=== PATIENT | female | born 1990 | race Caucasian/White ===

== ENCOUNTER 2016-07-06 16:17 | Emergency (ER) | payer BC, OTHER ==
[~2016-07-06] VITALS: Ht 160 cm; Wt 81.0 kg
[~2016-07-06 16:17] MED LIST: CIPR-255 PO; LORA-741 PO; NORE1TAB53 PO; PANT1TAB48 PO; SERT1TAB68 PO; SERT50TA PO; SUCR1TAB29 PO
[2016-07-06 16:25] VITALS: BP 135/92; TEMP 37.2; Ht 160 cm; Wt 81.0 kg
[2016-07-06] MEDS ORDERED: NORE0.1T PO (16:43)
[2016-07-06] MEDS ORDERED: ZLF/100 PO (16:43)
[2016-07-06] MEDS ORDERED: DULO-24 PO (16:44)
--- NOTE | 2016-07-06 16:53 | EMERGENCY ROOM VISIT NOTE ---
History First contact with patient: 16:38 Chief Complaint: EYE ASSESSMENT Stated Complaint: SUDDEN BLURRY EYES History of Present Illness The patient is a 26 year old female who presents to the Emergency Room via private vehicle with complaints of "suddenly blurry eyes". The patient states that 0.5 hours to 45 minutes ago she had gotten home from work back to her place of residence and was preparing to do laundry and noticed that there was vision changes in both eyes. She notes that there was a kaleidoscope change in her vision. She notes that when away in her left eye became blurry like there are floaters in the eye. She denies any symptoms currently. She thought that the symptoms are from being outside may also be a migraine with aura but she was not formally diagnosed with migraines. Patient notes that she does get headaches from time to time but does not see a neurologist. She states that after he vision changes she developed a headache on the top of her head that she rates as a 2/10. She notes she was also feeling anxious after vision changes and took an Ativan did help her calm down which was prescribed. She denies any eye pain or trauma. She denies any abdominal pain. She denies any chest pain, shortness of breath, fevers, chills. Review of Systems A complete 6-point Review of Systems was discussed with the patient, with pertinent positives and negatives listed in the History of Present Illness. All remaining Review of Systems questions can be considered negative unless otherwise specified. Past Medical/Surgical History Medical Problems: (1) Anxiety (2) GERD (gastroesophageal reflux disease) (3) Ovarian cyst (4) PTSD (post-traumatic stress disorder) Family History Cancer Gastrointestinal disorder Seizures Social History Smoking Status: Never Smoker Alcohol Use: occasionally Drug Use: none Marital Status: single Housing Status: lives alone Occupation Status: employed Current/Historical Medications Scheduled Duloxetine HCl (Cymbalta), 20 MG PO QAM Norethindrone & Eth Estradiol (Alyacen ), 1 TAB PO DAILY Sertraline HCl (Sertraline HCl), 150 MG PO QAM Scheduled PRN Lorazepam (Ativan), 0.5 MG PO Q6H PRN for Anxiety Allergies Coded Allergies: Amoxicillin (Verified Allergy, Unknown, ITCHY THROAT, 07/05/15) Jose C (Verified Allergy, Unknown, GI SYMPTOMS, 07/05/15) food intolerance Physical Exam Vital Signs Date Time Temp Pulse Resp B/P Pulse Ox O2 Delivery O2 Flow Rate FiO2 07/06/16 19:03 87 19 99 07/06/16 16:25 37.2 92 18 135/92 99 Room Air Right Eye Acuity: 20/20 Left Eye Acuity: 20/30 Physical Exam VITAL SIGNS - Vital signs and nursing notes were reviewed. Afebrile, normotensive, not tachycardic and saturating well on room air 99%. GENERAL -26-year-old female appearing her stated age who is in no acute distress. Communicates well with provider and answers questions appropriately. SKIN - Without rashes. HEAD - NC/AT. EYES - PERRL with EOMI bilaterally. Sclera without noticeable foreign body or excoriations. No injection noted in the Bilateral eyes. Without subconjunctival hemorrhage. Palpebral conjunctiva pink and moist with no injection or discharge noted. Brief fundoscopic exam demonstrates no AV-nicking, cotton wool spots, or flame hemorrhages. Unremarkable eye exam. EARS - No deformities of external structures noted on gross examination bilaterally. No pain elicited with palpation of the tragus bilaterally. External auditory canals without discharge or otorrhea. Tympanic membranes pearly canseco without retraction or bulging. No fluid or purulent material visualized behind the TM. Handle of malleus, umbo, cone of light, pars tensa/ flaccid all easily visualized. NOSE - Midline and without cyanosis. No epistaxis or purulent drainage noted. Septum midline without deviation or septal hematoma noted. MOUTH/OROPHARYNX - Without perioral cyanosis. Buccal mucosa pink and moist and without leukoplakia. Tongue midline with equal elevation of palate bilaterally. No tonsillar hypertrophy, erythema, or exudates noted. Good dentition noted. NECK - Neck with FROM. Supple to palpation. No lymphadenopathy noted. No nuchal rigidity. No meningismus. LUNGS - Chest wall symmetric without accessory muscle use, intercostals retractions, or central cyanosis. Normal vesicular breath sounds CTA B/L. No wheezes, rales, or rhonchi appreciated. CARDIAC - RRR with S1/S2. No murmur, rubs, or gallops appreciated. EXTREMITIES - +5/5 strength noted in UE/LE bilaterally. NEUROLOGIC - Cranial nerves II through XII grossly intact. Sensory intact to light touch throughout. Patellar reflexes +2/4. PSYCH - Pt is very pleasant and interacts well with examiner. Medical Decision & Procedures ER Provider Diagnostic Interpretation: HEAD CT NONCONTRAST CT DOSE: 537.48 mGy.cm HISTORY: Vision changes bilaterally x 1 hour, resolved, now headache TECHNIQUE: Multiaxial CT images of the head were performed without the use of intravenous contrast. Comparison: None. Findings: The paranasal sinuses and mastoid air cells are clear. The calvarium and skull base are intact. The ventricles and sulci are within normal limits. There is no mass, hematoma, midline shift, or acute infarct. Impression: No acute intracranial abnormality. Electronically signed by: Barry Lin M.D. 07/06/2016 5:54 PM Dictated Date/Time: 07/06/2016 5:53 PM Laboratory Results Test 07/06/16 16:57 Medical Decision Patient was seen and evaluated as above. After obtaining a thorough history and physical examination the patient's symptomatology was consistent with that of a migraine with aura. This is considered particularly because the patient experienced the vision changes bilaterally and as soon as a subsided she developed with a headache. However, and her etiologies were certainly entertained therefore a CT scan of the head was obtained, as well as a urine prior to obtaining the scan. Visual acuity reveals no acute abnormalities. Examination was unremarkable. No neurologic deficits on exam. Results of the CT scan as above. I agree with radiologist findings. The findings were thoroughly discussed with the patient. I believe the patient is likely experiencing a migraine with aura. The patient is to follow-up with neurology by calling the phone number provided first thing tomorrow morning. She was educated upon worrisome symptoms in which to return, had questions answered prior to discharge and was discharged home in good condition. In evaluation treatment of this patient the following differential diagnoses were entertained: Migraine with aura, acute intracranial abnormality, subarachnoid hemorrhage, TIA, stroke, among others. Because the patient had bilateral symptoms, that were transient quickly followed by a headache I suspect migraine with aura. Examination was completely unremarkable. I do believe the patient is stable for discharge with follow-up in the outpatient setting with neurology. She is to return with any new/concerning symptoms. Impression Primary Impression: Transient visual disturbance, bilateral Departure Information Dispostion Home / Self-Care Condition GOOD Referrals No Doctor, Assigned (PCP) Sonya,Rekha S D.O. Patient Instructions My [facility] Additional Instructions You were seen in the emergency Department for bilateral eye disturbances. CT scan did not reveal any abnormalities. You have been provided the number for a neurologist. Please call the phone number first thing tomorrow morning to schedule follow-up. It is also recommended you follow up with your family doctor. For pain control, you can use the following [id number] medicines (if >12 yo): - Regular strength (325mg/tab) Tylenol (acetaminophen) 2 tabs every 4-6 hours as needed. Do not exceed 12 tablets in a 24 hour period. Avoid taking more than 4 grams (4000 mg) of Tylenol per day. This includes any other sources of acetaminophen you may take on a regular basis. - Regular strength (200 mg/tab) Advil (ibuprofen) 1-2 tabs every 4-6 hours as needed. Do not exceed a dose of 3200 mg per day. You should relax in a quiet, dark place for the rest of the day. Avoid any possible triggers including: cigarette smoke, caffeine, nicotine, chocolate, wine, beer, loud noises or music, or bright lights. Return to the Emergency Department if your current symptoms worsen despite treatment course outlined above, or if you develop any of the following symptoms : intractable pain despite aforementioned treatment course, visual disturbances , loss of vision, unilateral weakness or facial drooping, slurring of speech, loss of coordination, or loss of consciousness. Please return to the emergency department with any new/concerning symptoms.
--- NOTE | 2016-07-06 17:55 | DIAGNOSTIC IMAGING REPORT ---
HEAD CT NONCONTRAST CT DOSE: 537.48 mGy.cm HISTORY: Vision changes bilaterally x 1 hour, resolved, now headache TECHNIQUE: Multiaxial CT images of the head were performed without the use of intravenous contrast. Comparison: None. Findings: The paranasal sinuses and mastoid air cells are clear. The calvarium and skull base are intact. The ventricles and sulci are within normal limits. There is no mass, hematoma, midline shift, or acute infarct. Impression: No acute intracranial abnormality. Electronically signed by: Barry Lin M.D. 07/06/2016 5:54 PM Dictated Date/Time: 07/06/2016 5:53 PM
[2016-07-06 19:03] VITALS: PULSE 87; O2SAT 99
== END 2016-07-06 19:04 | disposition home or self-care (01) ==
LOC: C.EDB 16:18 → C.EDD 19:04
DX: H53.123 Transient visual loss, bilateral (principal); F43.10 Post-traumatic stress disorder, unspecified; Z82.0 Family history of epilepsy and other diseases of the nervous system

== ENCOUNTER → 2016-11-25 | Outpatient (CLI) | payer BC ==
[~2016-11-25] MED LIST changes: -CIPR-255 PO; +DULO-24 PO; +NORE0.1T PO; -NORE1TAB53 PO; -PANT1TAB48 PO; -SERT1TAB68 PO; -SERT50TA PO; -SUCR1TAB29 PO; +ZLF/100 PO
== END | disposition home or self-care (01) ==
LOC: C.PAPS 13:19
PROVIDERS: ATTEND Obstetrics & Gynecology
DX: Z01.419 Encounter for gynecological examination (general) (routine) without abnormal findings (principal)

== ENCOUNTER → 2017-06-09 | Outpatient (CLI) | payer OTHER | END | disposition home or self-care (01) | LOC: C.LABSPEC 17:34 | PROVIDERS: ATTEND Physician Assistant | DX: L29.8 Other pruritus (principal); Z11.3 Encounter for screening for infections with a predominantly sexual mode of transmission; Z11.8 Encounter for screening for other infectious and parasitic diseases ==

== ENCOUNTER → 2017-06-24 | Outpatient (CLI) | payer OTHER ==
[2017-06-24 09:42] LABS: BASO % 0.6 %; BASO ABS # 0.04 K/uL (0-0.2); EOS % 4.2 %; EOS ABS # 0.27 K/uL (0-0.5); HEMATOCRIT 42.4 % (37-47); HEMOGLOBIN 14.4 g/dL (12.0-16.0); IG# 0.01 K/uL (0.00-0.02); LYMPH % 35.2 %; LYMPH ABS # 2.24 K/uL (1.2-3.4); MEAN CELL VOLUME 92.2 fL (80-100); MEAN CORPUSCULAR HEMOGLOBIN 31.3 pg (25-34); MEAN PLATELET VOLUME 10.9 fL (7.4-10.4); MONO % 8.8 %; MONO ABS # 0.56 K/uL (0.11-0.59); NEUT ABS # 3.24 K/uL (1.4-6.5); PLATELET COUNT 276 K/uL (130-400); RED CELL DISTRIBUTION WIDTH CV 13.6 % (11.5-14.5); RED CELL DISTRIBUTION WIDTH SD 45.5 fL (36.4-46.3); WHITE BLOOD COUNT 6.36 K/uL (4.8-10.8)
[2017-06-24 10:16] LABS: BLOOD UREA NITROGEN 13 mg/dl (7-18); CARBON DIOXIDE 26 mmol/L (21-32); CREATININE 0.73 mg/dl (0.60-1.20); GLUCOSE 83 mg/dl (70-99); SODIUM 137 mmol/L (136-145)
== END | disposition home or self-care (01) ==
LOC: C.LAB1850 08:50
PROVIDERS: ATTEND Nurse Practitioner Adult Health
DX: H53.9 Unspecified visual disturbance (principal); G43.909 Migraine, unspecified, not intractable, without status migrainosus; D72.9 Disorder of white blood cells, unspecified; Z86.2 Personal history of diseases of the blood and blood-forming organs and certain disorders involving the immune mechanism